=== PATIENT | female | born 2000 | race Caucasian/White ===

== ENCOUNTER 2022-09-25 18:08 | Observation (INO) | payer MEDICAID ==
[~2022-09-25] VITALS: Ht 160 cm; Wt 80.3 kg
[2022-09-25] MEDS ORDERED: LACTATED RINGERS 1,000 ML IV SCH (18:30)
[2022-09-25 19:36] LABS: CLARITY URINE CLOUDY (CLEAR); COLOR URINE YELLOW (YELLOW); KETONES URINE NEGATIVE (NEGATIVE); LEUKOCYTE ESTERASE URINE 1+ (NEGATIVE); NITRITE URINE NEGATIVE (NEGATIVE); OCCULT BLOOD URINE 3+ (NEGATIVE); PH URINE 7.5 (4.5-8.0); PROTEIN URINE NEGATIVE (NEGATIVE); SPECIFIC GRAVITY URINE 1.016 (1.005-1.030); UROBILINOGEN URINE 0.2 E.U./dL (0.2-1.0)
[2022-09-25] MEDS ORDERED: PREN1TAB78 PO (20:23)
[2022-09-25] MEDS ORDERED: CEFAZOLIN 2,000 MG in DEXT 5% WATER 100 ML IV NR (20:30)
[2022-09-25 20:51] LABS: BASOPHILS % 0.4 % (0.0-2.0); HEMATOCRIT. 36.5 % (36.0-48.0); HEMOGLOBIN. 12.4 g/dL (12.0-16.0); LYMPHOCYTES % 12.4 % (20.0-50.0); MEAN CORPUSCULAR HEMOGLOBIN 30.3 pg (28.0-32.0); MEAN PLATELET VOLUME 8.2 fl (7.4-10.4); MONOCYTES % 8.2 % (2.0-8.0); PLATELET 223 x1000/uL (130-400); RED CELL DISTRIBUTION WIDTH 14.2 % (11.6-14.6)
== END 2022-09-25 22:35 | disposition home or self-care (01) ==
LOC: 8 EST LDRP 18:08
PROVIDERS: ADMIT Obstetrics & Gynecology; ATTEND Obstetrics & Gynecology
DX: O26.892 Other specified pregnancy related conditions, second trimester (principal); R10.2 Pelvic and perineal pain; R10.30 Lower abdominal pain, unspecified; O26.852 Spotting complicating pregnancy, second trimester; O62.9 Abnormality of forces of labor, unspecified; Z3A.21 21 weeks gestation of pregnancy
CPT/HCPCS: 36415; 59025; 76805; 81003; 85025; 96365; G0378; J0690; J7060; 96360; 96361; 99281; G0379

== ENCOUNTER 2022-09-28 11:03 | Observation (INO) | payer MEDICAID ==
[~2022-09-28] VITALS: Ht 160 cm; Wt 80.3 kg
[~2022-09-28 11:03] MED LIST: PREN1TAB78 PO
== END 2022-09-28 13:20 | disposition home or self-care (01) ==
LOC: L&D 11:03 → INTOOBSV 11:03 → 8 EST LDRP 11:19
PROVIDERS: ADMIT Obstetrics & Gynecology; ATTEND Obstetrics & Gynecology
DX: O42.912 Preterm premature rupture of membranes, unspecified as to length of time between rupture and onset of labor, second trimester (principal); O62.9 Abnormality of forces of labor, unspecified; Z3A.22 22 weeks gestation of pregnancy
CPT/HCPCS: 59025; 76815; G0378; 99281